=== PATIENT | female | born 1960 | race Caucasian/White ===

== ENCOUNTER → 2016-08-25 | Outpatient (CLI) | payer OTHER | LOC: KOH-I 13:17 | DX: R50.9 Fever, unspecified (principal) | CPT/HCPCS: 71020 ==

== ENCOUNTER 2016-08-27 14:26 | Emergency (ER) | payer OTHER ==
[2016-08-27 15:23] LABS: HEMOGLOBIN 13.3 gm/dl (12.3-15.3); RED BLOOD COUNT 4.69 M/UL (4.00-5.10); WHITE BLOOD COUNT 6.3 K/UL (4.5-11.0)
== END 2016-08-27 22:11 ==
LOC: ER1 14:26
PROVIDERS: Emergency Medicine
DX: I63.9 Cerebral infarction, unspecified (principal); R47.01 Aphasia; R09.02 Hypoxemia; I10 Essential (primary) hypertension
CPT/HCPCS: 36415; 36600; 70450; 71020; 80053; 82803; 83605; 83690; 83880; 84484; 85025; 85610; 85730; 87040; 93005; 94640; 94664; 96361; 96374; 99285; J2060; J7030; J7050; Q9963

== ENCOUNTER → 2020-04-15 | Outpatient (CLI) | payer OTHER | LOC: RT 12:07 | DX: Z51.81 Encounter for therapeutic drug level monitoring (principal); Z79.891 Long term (current) use of opiate analgesic; Z95.0 Presence of cardiac pacemaker | CPT/HCPCS: 93005 ==

== ENCOUNTER → 2020-09-25 | Outpatient (CLI) | payer OTHER | LOC: RAD 12:25 | DX: R10.9 Unspecified abdominal pain (principal); N20.0 Calculus of kidney | CPT/HCPCS: 74018 ==

== ENCOUNTER → 2020-10-03 | Outpatient (CLI) | payer OTHER | LOC: HEART 5 08:18 | DX: R05 Cough (principal) | CPT/HCPCS: 94010 ==

== ENCOUNTER → 2020-10-22 | Outpatient (CLI) | payer OTHER | LOC: RAD 10:08 | DX: M25.551 Pain in right hip (principal); M25.552 Pain in left hip; M47.818 Spondylosis without myelopathy or radiculopathy, sacral and sacrococcygeal region; M46.1 Sacroiliitis, not elsewhere classified; M19.09 Primary osteoarthritis, other specified site | CPT/HCPCS: 73522 ==

== ENCOUNTER → 2021-04-27 | Outpatient (CLI) | payer OTHER | LOC: KOH-I 09:05 | DX: K76.0 Fatty (change of) liver, not elsewhere classified (principal); Z90.49 Acquired absence of other specified parts of digestive tract | CPT/HCPCS: 76700 ==

== ENCOUNTER → 2021-06-30 | Outpatient (CLI) | payer OTHER ==
[~2021-06-30] MED LIST: ALLERGY RELIEF10 M1 PO; AMITRIPTYLINE100 MG PO; BACTRIM 400-801 EACH PO; BUPROPION HCL150 MG PO; CARDIZEM 90MG T90 MG PO; LINZESS72 MCG PO; LIPITOR40 MG PO; METFORMIN HCL500 MG PO; NEURONTIN300 MG PO; PERCOCET 10-321 EACH PO; PREVACID30 MG PO; REXULTI2 MG PO; TRAZODONE HCL100 MG PO; VIIBRYD40 MG PO; ZANAFLEX4 MG PO
== END ==
LOC: OPSV2 10:00
PROVIDERS: Orthopaedic Surgery
DX: Z01.818 Encounter for other preprocedural examination (principal); M65.332 Trigger finger, left middle finger
CPT/HCPCS: 80048; 93005

== ENCOUNTER → 2021-07-06 | Day surgery (SDC) | payer OTHER ==
[~2021-07-06] VITALS: Ht 170.2 cm; Wt 91.6 kg
== END | disposition home or self-care (01) ==
LOC: OR 05:21
DX: M65.332 Trigger finger, left middle finger (principal); E78.5 Hyperlipidemia, unspecified; I10 Essential (primary) hypertension; K21.9 Gastro-esophageal reflux disease without esophagitis; K76.0 Fatty (change of) liver, not elsewhere classified; F11.20 Opioid dependence, uncomplicated; E11.9 Type 2 diabetes mellitus without complications; Z90.49 Acquired absence of other specified parts of digestive tract; Z95.0 Presence of cardiac pacemaker; Z90.710 Acquired absence of both cervix and uterus; Z79.84 Long term (current) use of oral hypoglycemic drugs; Z20.822 Contact with and (suspected) exposure to COVID-19
CPT/HCPCS: 82962; J0690; J1100; J2001; J2250; J2405; J2704; J3010; J7030; J7120

== ENCOUNTER → 2021-09-18 | Outpatient (CLI) | payer OTHER, BC | LOC: RAD 12:00 | DX: R68.89 Other general symptoms and signs (principal); J98.4 Other disorders of lung | CPT/HCPCS: 71046 ==

== ENCOUNTER → 2021-11-27 | Outpatient (CLI) | payer OTHER, BC | LOC: LAB 10:16 | PROVIDERS: Physician Assistant | DX: Z51.81 Encounter for therapeutic drug level monitoring (principal) | CPT/HCPCS: 36415; G0480 ==